=== PATIENT | male | born 2000 | race Caucasian/White ===

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

== ENCOUNTER → 2023-09-06 | Outpatient (CLI) | payer BC ==
--- NOTE | 2023-09-08 16:41 | US ---
EXAMINATION TYPE: US st tissue neck DATE OF EXAM: 09/06/2023 COMPARISON: NONE CLINICAL INDICATION: Male, 22 years old with history of palpable; Patient states he feels palpable ar ea on right and left neck under mandible, can be tender TECHNIQUE: Soft tissue scan of neck FINDINGS: Supervisor [employer] notes: Bilateral lymph nodes seen. Measured largest. Right = 1.0 x 0.5 x 0.9cm Left = 1.5 x 0.8 x 0.9cm Grayscale images show thickened but normal size lymph nodes. IMPRESSION: Thickened but normal-sized lymph nodes on both sides of the neck measuring up to 9 mm short axis. Pro bably reactive/post inflammatory. Clinical follow-up recommended. If any enlarging palpable area, the patient can be rescanned.
== END | disposition home or self-care (01) ==
LOC: RADUSWWP 15:34
PROVIDERS: ATTEND Family Medicine
DX: R59.0 Localized enlarged lymph nodes (principal)
CPT/HCPCS: 76536